=== PATIENT | female | born 1990 | race Caucasian/White ===

== ENCOUNTER 2017-11-21 18:05 | Inpatient (IN) ==
[2017-11-21] MEDS ORDERED: Sod Chloride 0.9% Inj 1,000 ML IV.CONT PRN (19:42)
[2017-11-21] MEDS ORDERED: fentaNYL Citrate Inj 100 MCG/2 ML Ampul IV.PUSH PRN ×2 (19:42)
[2017-11-21] MEDS ORDERED: Sodium Chlor 0.9% Inj 500 ML IV.SIG PRN (19:42)
[2017-11-21] MEDS ORDERED: Oxytocin 30 Units/500ml Premix 30 UNITS/500 ML BAG IV.SIG ONE (19:42)
[2017-11-21] MEDS ORDERED: Naloxone Inj 0.4 MG/ML Vial IV.PUSH PRN (19:42)
[2017-11-21] MEDS ORDERED: Citric Acid/Sodium Citrate Liq 30 ML UDC PO SCH (19:45)
--- NOTE | 2017-11-21 19:54 | P.HPOB ---
History of Present Illness Service: Obstetrics Primary Care Physician: NOT REQUIRED Chief Complaint: labor induction per Dr. Ospina, post dates History of Present Illness: 27 yo G1 with EDC 11/19/17 by ultrasound seen in the office today by Dr. Ospina with discussion of labor induction due to postdates. Pt aware of risks of induction including risk of failure, distress, need for , and strongly desires post dates induction today. No leakage of fluid or vaginal bleeding, endorses good movement. No regular contractions, pain 2/10 pelvic pressure. Weeks Gestation:: 40 Para: 0 : 1 - Inpatient Certification I certify that the inpatient services were ordered in accordance with Medicare regulations governing the order. This includes certification that hospital inpatient services are reasonable and necessary and in the case of services not specified as inpatient-only under 42 CFR 419.22(n), that they are appropriately provided as inpatient services in accordance to with the 2-midnight benchmark under 43 CFR 412.3(e) Estimated Total Length of Stay (Days): 5 Plans for Post Hospital Care: Home Review of Systems All other systems reviewed negative except as stated in HPI PMFSH - History History Provided By: Patient - Medical / Surgical Hx Neg / Unobtainable Medical Problems Denied: Yes - Medical History Medical History: Medical History (Last Updated 11/21/17 @ 19:50 by Marily Andrews MD) History of wisdom tooth extraction - Family History Family History: Family History (Last Updated 11/21/17 @ 19:50 by Marily Andrews MD) Other No significant family history - Social History I have reviewed the patient's Social History: Yes - Tobacco History Second Hand Smoke Exposure: No Tobacco Use In Past 30 Days: No Smoking Status: Former smoker Tobacco Type: Cigarettes - Alcohol History How Often Do You Have a Drink Containing Alcohol: Never - Substance Use History Substance History: No History of Abuse - Travel History History of Recent Travel: Yes ([place] within past 6 months) Recent Travel in the [place] Within the Last 8 Weeks: No Recent Travel Out of the Country Within the Last 8 Weeks: No Medications and Allergies Active Medications: Active Medications Citric Acid/Sodium Citrate (Sodium Citrate/Citric Acid Liq) 30 ml PO RENEWALS REPRESENTATIVE JAYSHREE Stop: 11/25/17 19:44 Dinoprostone (Cervidil Vag Insert) 10 mg VAGINAL ONCE ONE Stop: 11/21/17 19:43 Fentanyl Citrate (Fentanyl Inj) 50 mcg IV.PUSH Q1H PRN PRN Reason: Pain Scale 3 - 5 Fentanyl Citrate (Fentanyl Inj) 100 mcg IV.PUSH Q1H PRN PRN Reason: PAIN SCALE 6 TO 10 Lactated Ringer's (Lr 1000 Ml Inj) 1,000 mls @ 3,000 mls/hr IV.SIG UNSCH PRN PRN Reason: compromise or epidural Sodium Chloride (Ns Inj) 500 mls @ 1,000 mls/hr IV.SIG UNSCH PRN PRN Reason: SEE LABEL COMMENTS Sodium Chloride (Ns Inj) 1,000 mls @ 100 mls/hr IV.CONT .Q10H PRN PRN Reason: SEE LABEL COMMENTS Oxytocin (Pitocin 30 Units/Ns 500 Ml Premix) 30 units in 500 mls @ 999 mls/hr IV.SIG BOLUS ONE Stop: 11/21/17 20:12 Lidocaine HCl (Xylocaine 1% Inj) 0.1 ml I-DERMAL PRN PRN PRN Reason: For IV start Stop: 11/24/17 19:41 Lidocaine HCl (Xylocaine 1% Inj) 10 ml INFILTRATN PRN PRN PRN Reason: For episiotomy repair Stop: 11/23/17 19:41 Mineral Oil (Muri-Lube Oil) 10 ml TOPICAL PRN PRN PRN Reason: PRN perineal massage Naloxone HCl (Narcan Inj) 0.1 mg IV.PUSH Q2M PRN PRN Reason: for opiate reversal Ondansetron HCl (Zofran Inj) 4 mg IV.PUSH Q6H PRN PRN Reason: NAUSEA OR VOMITING Sodium Chloride (Ns Flush) 2 ml IV.FLUSH BID JAYSHREE Sodium Chloride (Ns Flush) 2 ml IV.FLUSH PRN PRN PRN Reason: FLUSH AFTER USING IV ACCESS Allergies Allergy/AdvReac Type Severity Reaction Status Date / Time No Known Allergies Allergy Unverified 11/21/17 19:16 Home Medications Medication Instructions Recorded Confirmed Type calcium carbonate [Tums] 2 tab PO DAILY PRN 11/21/17 11/21/17 History prenat.vits,chloe,[id number] 1 tab PO DAILY 11/21/17 11/21/17 History [ Vitamin] Exam Vital signs: Vital Signs 11/21/17 18:35 11/21/17 18:55 11/21/17 19:40 Pulse Rate 93 H 89 91 H Blood Pressure 125/69 Intake & Output 11/21/17 11/21/17 11/22/17 06:59 18:59 06:59 Weight 72.121 kg - Constitutional no acute distress - Routine HEENT Exam Head: Present: normocephalic, atraumatic Eye: Present: EOMI ENT: Present: mucous membranes moist - Routine Neck Exam Present: supple, full ROM - Routine Chest/Breast/Axilla Exam Chest wall: Absent: tenderness, mass - Routine Respiratory Exam Absent: accessory muscle use, decreased breath sounds - Routine Cardiovascular Exam Present: RRR. Absent: bradycardia - Routine Abdominal Exam Present: normoactive bowel sounds. Absent: tenderness Comments: gravid c/w dates - Routine Extremities Exam Absent: cyanosis, edema - Routine Skin Exam Present: intact - Routine Neurological Exam Present: alert, oriented X3 Results - Labs Group B Strep: Negative Caprini VTE Risk Assessment Caprini VTE Risk Assessment: No/Low Risk (score <= 1) VTE Pharmacological Exception Reason: Epidural catheter Caprini Risk Assessment Model: Point Value = 1 Point Value = 2 Point Value = 3 Point Value = 5 Age 41-60 Minor surgery BMI > 25 kg/m2 Swollen legs Varicose veins or History of unexplained or recurrent spontaneous Oral contraceptives or hormone replacement Sepsis (< 1 month) Serious lung disease, including pneumonia (< 1 month) Abnormal pulmonary function Acute myocardial infarction Congestive heart failure (< 1 month) History of inflammatory bowel disease Medical patient at bed rest Age 61-74 Arthroscopic surgery Major open surgery (> 45 min) Laparoscopic surgery (> 45 min) Malignancy Confined to bed (> 72 hours) Immobilizing plaster cast Central venous access Age >= 75 History of VTE Family history of VTE Factor V Leiden Prothrombin [id number] Lupus anticoagulant Anticardiolipin antibodies Elevated serum homocysteine Heparin-induced thrombocytopenia Other congenital or acquired thrombophilia Stroke (< 1 month) Elective arthroplasty Hip, pelvis, or leg fracture Acute spinal cord injury (< 1 month) Prophylaxis Regimen: Total Risk Factor Score Risk Level Prophylaxis Regimen 0-1 Low Early ambulation 2 Moderate Order ONE of the following: *Sequential Compression Device (SCD) *Heparin 5000 units SQ BID 3-4 Higher Order ONE of the following medications: *Heparin 5000 units SQ TID *Enoxaparin/Lovenox 40 mg SQ daily (WT < 150 kg, CrCl > 30 mL/min) *Enoxaparin/Lovenox 30 mg SQ daily (WT < 150 kg, CrCl > 10-29 mL/min) *Enoxaparin/Lovenox 30 mg SQ BID (WT < 150 kg, CrCl > 30 mL/min) AND/OR *Sequential Compression Device (SCD) 5 or more Highest Order ONE of the following medications: *Heparin 5000 units SQ TID (Preferred with Epidurals) *Enoxaparin/Lovenox 40 mg SQ daily (WT < 150 kg, CrCl > 30 mL/min) *Enoxaparin/Lovenox 30 mg SQ daily (WT < 150 kg, CrCl > 10-29 mL/min) *Enoxaparin/Lovenox 30 mg SQ BID (WT < 150 kg, CrCl > 30 mL/min) AND *Sequential Compression Device (SCD) Assessment and Plan - Diagnosis (1) Post term Code(s): O48.0 - Post-term Status: Acute - Plan 27 yo G1 with EDC 11/19/[address] Ospina for labor induction due to postdates 1) IOL: unfavorable Rivera score, pt aware of possibility of prolonged induction , possible failed induction, possible distress or need for , consents for induction; plan cervidil overnight and re-evaluate in AM for additional methods as indicated 2) GBS negative 3) status: 09/21 BPP in office today, estimate 7#, vertex, female dispo: not meeting d/c criteria, anticipate discharge 2-3d Discharge Plannin-3d PP
[2017-11-21 21:13] LABS: Baso # (Auto) 0.1 th/mm3 (0.0-0.2); Baso % (Auto) 0.5 % (0.0-2.0); Eos # (Auto) 0.2 th/mm3 (0.0-0.4); Eos % (Auto) 1.4 % (0.0-4.0); Hematocrit 31.1 % (35.0-46.0); Hemoglobin 9.9 gm/dL (11.6-15.3); Lymph # (Auto) 2.4 th/mm3 (1.0-4.8); Lymph % (Auto) 18.7 % (9.0-44.0); Mean Corpuscular Volume 90.6 fL (80.0-100.0); Mean Platelet Volume 10.8 fL (7.0-11.0); Mono # (Auto) 0.8 th/mm3 (0.0-0.9); Mono % (Auto) 6.1 % (0.0-8.0); Neut # (Auto) 9.2 th/mm3 (1.8-7.7); Neut % (Auto) 73.3 % (16.0-70.0); Platelet Count 192 th/mm3 (150-450); Red Blood Count 3.43 mil/mm3 (4.00-5.30); Red Cell Distribution Width 12.9 % (11.6-17.2); White Blood Count 12.6 th/mm3 (4.0-11.0)
[2017-11-21 21:16] LABS: Bacteria,Urine Rare /hpf; Bilirubin,Urine Negative (Negative); Clarity,Urine Clear (Clear); Color,Urine Yellow (Yellw/Straw); Glucose,Urine (UA) Negative (Negative); Leukocyte Esterase,Urine Negative (Negative); Mucus,Urine Few /lpf (Occasional); Nitrite,Urine Negative (Negative); Specific Gravity,Urine 1.009 (1.002-1.035); Squamous Epithelial Cell,Urine 2 /hpf (0-5)
[2017-11-21 21:20] LABS: Amphetamine Urine With Conf Neg (Neg); Benzodiazepine Urine With Conf Neg (Neg)
[2017-11-22] MEDS ORDERED: Oxytocin 30 Units/500ml Premix 30 UNITS/500 ML BAG IV.SIG PRN (07:49)
--- NOTE | 2017-11-22 07:52 | P.OBLABOR ---
Subjective Interval history: quiet night would like to eat and shower Objective Vital Signs: Vital Signs - 8 hr 11/22/17 00:00 11/22/17 00:10 11/22/17 00:25 Temperature 97.9 F Pulse Rate 88 95 H 87 Respiratory Rate 14 Blood Pressure 117/85 11/22/17 00:40 11/22/17 00:45 11/22/17 01:30 Temperature Pulse Rate 87 88 86 Respiratory Rate Blood Pressure 11/22/17 01:55 11/22/17 02:10 11/22/17 02:25 Temperature Pulse Rate 85 86 84 Respiratory Rate Blood Pressure 11/22/17 02:40 11/22/17 03:35 11/22/17 03:40 Temperature Pulse Rate 91 H 87 79 Respiratory Rate Blood Pressure 11/22/17 03:49 11/22/17 03:50 11/22/17 03:55 Temperature Pulse Rate 82 81 Respiratory Rate 18 Blood Pressure 118/74 11/22/17 04:40 11/22/17 04:55 11/22/17 05:06 Temperature Pulse Rate 91 H 90 79 Respiratory Rate Blood Pressure 95/52 L 11/22/17 05:15 11/22/17 05:25 11/22/17 05:55 Temperature 98.4 F Pulse Rate 79 78 Respiratory Rate 18 Blood Pressure 11/22/17 06:00 11/22/17 06:05 11/22/17 06:55 Temperature Pulse Rate 78 80 97 H Respiratory Rate 18 Blood Pressure 11/22/17 07:20 11/22/17 07:25 11/22/17 07:45 Temperature Pulse Rate 87 84 82 Respiratory Rate Blood Pressure Objective: 2 cm/80/soft/posterior BBOW 0 station EFW 7.5 pelvis clinically adequate strip category one Weeks Gestation: 40 Patient Started Active Labor: No Medical Induction of Labor: Yes Artificial Rupture of Membrane: No Assessment and Plan - Diagnosis (1) Post term Code(s): O48.0 - Post-term Status: Acute - Plan 27 yo G1 with EDC 11/19/[address] Ospina for labor induction due to postdates 1) IOL: unfavorable Rivera score, pt aware of possibility of prolonged induction , possible failed induction, possible distress or need for , consents for induction; plan cervidil overnight and re-evaluate in AM for additional methods as indicated 2) GBS negative 3) status: 09/21 BPP in office today, estimate 7#, vertex, female dispo: not meeting d/c criteria, anticipate discharge 2-3d 11/22/17 7:45 breakfast, shower and then pitocin with epidural as desire encourage ambulation and birthing ball anticipate Discharge Plannin-3d PP
[2017-11-22] MEDS: Prenatal Vit/Ca/Iron/Folic Acid Tablet PO SCH (09:01)
[2017-11-22] MEDS ORDERED: fentaNYL 2MCG-Bupiv 0.125% Epi 150 ML EPIDURAL ONE (12:16)
[2017-11-22] MEDS ORDERED: Lidocaaine 1.5%/Epinephrine 1:200,000 PF Inj 5 ML Amp ONE (12:17)
[2017-11-22] MEDS ORDERED: Lidocaine PF 1% Inj 5 ML Vial ONE ×2 (12:17→12:18)
[2017-11-22] MEDS ORDERED: fentaNYL Citrate Inj 100 MCG/2 ML Ampul EPIDURAL ONE (12:54)
[2017-11-22] MEDS ORDERED: fentaNYL 2MCG-Bupiv 0.125% Epi 150 ML EPIDURAL PRN (12:54)
[2017-11-22] MEDS ORDERED: Measles/Mumps/Rubella Vaccine Inj 0.5 ML Vial SQ ONE (16:00)
[2017-11-22] MEDS ORDERED: Diphtheria/Tetanus/Pertussis Vaccine Inj 0.5 ML Syringe IM ONE (16:00)
[2017-11-22] MEDS ORDERED: Lidocaine 1% Inj 50 ML Vial ONE (19:17)
[2017-11-22] MEDS ORDERED: Acetaminophen 325 MG Tablet PO PRN (20:03)
[2017-11-22] MEDS ORDERED: Bisacodyl 10 MG Supp RECTAL PRN (20:03)
[2017-11-22] MEDS ORDERED: Oxytocin 30 Units/500ml Premix 30 UNITS/500 ML BAG IV.CONT PRN (20:03)
[2017-11-22] MEDS ORDERED: Zolpidem Tartrate 5 MG Tablet PO PRN (20:03)
[2017-11-22] MEDS ORDERED: Naloxone Inj 0.4 MG/ML Vial IV.PUSH PRN (20:03)
--- NOTE | 2017-11-22 20:03 | P.OBDELI ---
Weeks Gestation: 40 Patient Started Active Labor: Yes Medical Induction of Labor: Yes Artificial Rupture of Membrane: Yes Anesthesia: Epidural Episiotomy: none Vaginal Delivery: Normal Presentation: Occiput anterior Nuchal Cord: None Delayed Cord Clamping (45 sec): Yes Placenta: Spontaneous delivery, Intact, 3 vessel cord, Other (cord blood and tissue banking) Laceration: Perineal Repair: Chromic running Estimated blood loss (mL): 200 : Female Female A Infant Delivery Date: 11/22/17 Infant Delivery Time: 20:03 score (1 min): 8 score (5 min): 9
[2017-11-22] MEDS: Benzocaine 20% Top Spray 60 ML Can TOPICAL PRN (22:57)
[2017-11-22] MEDS: Witch Hazel 50%/Glyderin 12.5% 40 Pad Jar RECTAL PRN (22:57)
--- NOTE | 2017-11-23 07:08 | P.PNOB ---
Subjective Post day: 1 Interval history: doing well, pain controlled, VB < menses Objective Vital Signs/I&O: Vital Signs 11/22/17 07:20 11/22/17 07:25 11/22/17 07:45 Temperature Pulse Rate 87 84 82 Respiratory Rate Blood Pressure 11/22/17 08:59 11/22/17 09:20 11/22/17 09:25 Temperature 98.3 F Pulse Rate 100 H 100 H 88 Respiratory Rate 17 Blood Pressure 118/72 11/22/17 09:30 11/22/17 09:35 11/22/17 09:45 Temperature Pulse Rate 93 H 89 79 Respiratory Rate Blood Pressure 11/22/17 09:55 11/22/17 10:10 11/22/17 10:20 Temperature Pulse Rate 86 86 84 Respiratory Rate Blood Pressure 11/22/17 10:25 11/22/17 10:30 11/22/17 10:35 Temperature Pulse Rate 82 88 81 Respiratory Rate Blood Pressure 107/63 11/22/17 10:55 11/22/17 11:00 11/22/17 11:25 Temperature Pulse Rate 96 H 81 79 Respiratory Rate 17 Blood Pressure 115/66 11/22/17 11:30 11/22/17 11:40 11/22/17 11:50 Temperature Pulse Rate 75 73 Respiratory Rate 18 Blood Pressure 11/22/17 11:55 11/22/17 12:00 11/22/17 12:35 Temperature Pulse Rate 82 99 H Respiratory Rate 17 Blood Pressure 125/101 H 11/22/17 12:41 11/22/17 12:45 11/22/17 12:50 Temperature Pulse Rate 92 H 89 90 Respiratory Rate 18 Blood Pressure 117/63 114/62 11/22/17 12:55 11/22/17 13:10 11/22/17 13:15 Temperature 98.0 F Pulse Rate 89 90 85 Respiratory Rate 18 Blood Pressure 108/62 111/62 114/68 11/22/17 13:20 11/22/17 13:25 11/22/17 13:30 Temperature Pulse Rate 86 90 93 H Respiratory Rate Blood Pressure 114/64 117/66 116/64 11/22/17 13:35 11/22/17 13:41 11/22/17 13:50 Temperature Pulse Rate 95 H 81 Respiratory Rate Blood Pressure 146/113 H 117/68 112/72 11/22/17 13:55 11/22/17 13:57 11/22/17 14:00 Temperature Pulse Rate 76 75 Respiratory Rate 17 Blood Pressure 109/64 113/65 11/22/17 14:05 11/22/17 14:09 11/22/17 14:10 Temperature Pulse Rate 73 73 Respiratory Rate 17 Blood Pressure 105/61 106/61 11/22/17 14:20 11/22/17 14:35 11/22/17 14:44 Temperature Pulse Rate 86 89 84 Respiratory Rate 18 Blood Pressure 105/54 L 95/54 L 11/22/17 14:50 11/22/17 14:55 11/22/17 15:05 Temperature Pulse Rate 84 87 95 H Respiratory Rate Blood Pressure 101/55 L 114/74 11/22/17 15:10 11/22/17 15:15 11/22/17 15:20 Temperature Pulse Rate 83 79 89 Respiratory Rate Blood Pressure 115/73 11/22/17 15:25 11/22/17 15:30 11/22/17 15:39 Temperature 98.0 F Pulse Rate 91 H 85 Respiratory Rate 17 18 Blood Pressure 113/70 11/22/17 15:40 11/22/17 15:45 11/22/17 16:10 Temperature Pulse Rate 77 79 75 Respiratory Rate Blood Pressure 111/70 104/58 L 11/22/17 16:25 11/22/17 16:31 11/22/17 16:40 Temperature Pulse Rate 77 75 Respiratory Rate 18 Blood Pressure 100/54 L 11/22/17 16:55 11/22/17 17:05 11/22/17 17:10 Temperature Pulse Rate 76 81 83 Respiratory Rate Blood Pressure 99/50 L 94/67 L 11/22/17 17:13 11/22/17 17:16 11/22/17 17:25 Temperature Pulse Rate 82 92 H Respiratory Rate 16 Blood Pressure 96/57 L 11/22/17 17:35 11/22/17 17:40 11/22/17 17:45 Temperature 97.8 F Pulse Rate 80 89 Respiratory Rate 17 Blood Pressure 114/74 120/77 11/22/17 17:55 11/22/17 18:00 11/22/17 18:04 Temperature Pulse Rate 89 92 H Respiratory Rate 18 Blood Pressure 120/69 11/22/17 18:10 11/22/17 18:30 11/22/17 18:40 Temperature Pulse Rate 90 83 92 H Respiratory Rate Blood Pressure 116/72 11/22/17 18:45 11/22/17 19:00 11/22/17 19:07 Temperature Pulse Rate 98 H 104 H Respiratory Rate 17 18 Blood Pressure 119/77 11/22/17 19:10 11/22/17 19:22 11/22/17 19:25 Temperature Pulse Rate 100 H 104 H 109 H Respiratory Rate 18 Blood Pressure 130/82 11/22/17 19:45 11/22/17 19:58 11/22/17 19:59 Temperature Pulse Rate 102 H 120 H Respiratory Rate 18 18 Blood Pressure 113/72 117/62 11/22/17 20:00 11/22/17 20:15 11/22/17 20:20 Temperature 98.4 F Pulse Rate 104 H 104 H Respiratory Rate 18 Blood Pressure 118/74 118/74 11/22/17 20:30 11/22/17 20:45 11/22/17 21:30 Temperature Pulse Rate 99 H 100 H 97 H Respiratory Rate 18 18 18 Blood Pressure 117/45 L 112/63 104/59 L 11/22/17 21:43 11/22/17 21:44 11/22/17 22:00 Temperature 98.9 F 98.1 F Pulse Rate 86 91 H Respiratory Rate 18 17 Blood Pressure 109/55 L 126/69 Intake & Output 11/22/17 11/23/17 11/23/17 18:59 06:59 18:59 Intake Total 1000 / 1000 Balance 1000 / 1000 Intake: IV 1000 / 1000 LR 1000 mL Inj 1,000 ML @ 125 1000 / 1000 mls/hr IV.SIG .Q8H [facility] Rx#: [id number] Result Diagrams: 11/21/17 18:36 Objective Remarks: GENERAL: Well-nourished, well-developed patient. CARDIOVASCULAR: Regular rate and rhythm without murmurs, gallops, or rubs. RESPIRATORY: Breath sounds equal bilaterally. No accessory muscle use. ABDOMEN/GI: Abdomen soft, non-tender. Fundus: Firm, non-tender at umbilicus. GENITOURINARY: Light to moderate bleeding. EXTREMITIES: No cyanosis or edema, non-tender, without signs of DVT. Medications and IVs: Active Medications Acetaminophen (Tylenol) 650 mg PO Q4H PRN PRN Reason: PAIN SCALE 1 TO 2 Al Hydroxide/Mg Hydroxide (Milk Of Magnesia Liq) 30 ml PO Q12H PRN PRN Reason: Mild Constipation Benzocaine (Americaine 20% Top [place]) 1 spray TOPICAL Q4H PRN PRN Reason: For Perineum Discomfort Last Admin: 11/22/17 22:57 Dose: 1 spray Bisacodyl (Dulcolax Supp) 10 mg RECTAL DAILY PRN PRN Reason: SEVERE CONSITIPATION Calcium Carbonate (Tums Chew) 500 mg PO DAILY PRN PRN Reason: Heartburn Oxytocin (Pitocin 30 Units/Ns 500 Ml Premix) 30 units in 500 mls @ 100 mls/hr IV.CONT UNSCH PRN PRN Reason: Heavy bleeding Ibuprofen (Motrin) 800 mg PO Q8H PRN PRN Reason: For Cramping Last Admin: 11/23/17 03:08 Dose: 800 mg Lactulose (Lactulose Liq) 30 ml PO DAILY PRN PRN Reason: SEVERE CONSITIPATION Miscellaneous Information (Misc Information) 1 each OTHER UNSCH PRN PRN Reason: SEE LABEL COMMENTS Stop: 11/23/17 12:54 Miscellaneous Information (Misc Information) 1 each OTHER UNSCH PRN PRN Reason: SEE LABEL COMMENTS Stop: 11/23/17 12:54 Naloxone HCl (Narcan Inj) 0.1 mg IV.PUSH Q2M PRN PRN Reason: for opiate reversal Ondansetron HCl (Zofran Odt) 4 mg PO Q6H PRN PRN Reason: NAUSEA OR VOMITING Vit/Calcium/Iron/Folic Ac (Stuartnatal Plus 3) 1 tab PO DAILY [facility] Last Admin: 11/22/17 09:01 Dose: Not Given Senna/Docusate Sodium (Sarina-Colace) 1 tab PO BID [facility] Sennosides (Senokot) 17.2 mg PO Q12H PRN PRN Reason: Moderate Constipation Sodium Chloride (Ns Flush) 2 ml IV.FLUSH BID [facility] Last Admin: 11/22/17 09:00 Dose: 2 ml Sodium Chloride (Ns Flush) 2 ml IV.FLUSH PRN PRN PRN Reason: FLUSH AFTER USING IV ACCESS Sodium Chloride (Ns Flush) 2 ml IV.FLUSH PRN PRN PRN Reason: FLUSH AFTER USING IV ACCESS Sodium Chloride (Ns Flush) 2 ml IV.FLUSH BID JAYSHREE Witch [place]/Glycerin (Tucks Pads) 1 applicatio RECTAL QID PRN PRN Reason: HEMORRHOIDS Last Admin: 11/22/17 22:57 Dose: 1 applicatio Zolpidem Tartrate (Ambien) 5 mg PO HS PRN PRN Reason: SLEEP Assessment and Plan - Diagnosis (1) Post term Code(s): O48.0 - Post-term Status: Acute - Plan 27 yo s/p at 40w3d 1. PPD #1: doing well, anticipate d/c home tomorrow - female
[2017-11-23] MEDS: Senna/Docusate Sodium 8.6/50 MG Tablet PO SCH ×3 (08:40→21:02)
[2017-11-23] MEDS: Prenatal Vit/Ca/Iron/Folic Acid Tablet PO SCH (08:42)
--- NOTE | 2017-11-24 07:45 | P.PNOB ---
Subjective Post day: 2 Interval history: Doing well, baby doing well Objective Vital Signs/I&O: Vital Signs 11/23/17 08:00 11/23/17 20:00 Temperature 97.8 F 97.9 F Pulse Rate 74 75 Respiratory Rate 16 18 Blood Pressure 117/60 120/67 Result Diagrams: 11/21/17 18:36 Objective Remarks: GENERAL: Well-nourished, well-developed patient. CARDIOVASCULAR: Regular rate and rhythm without murmurs, gallops, or rubs. RESPIRATORY: Breath sounds equal bilaterally. No accessory muscle use. ABDOMEN/GI: Abdomen soft, non-tender. Fundus: Firm, non-tender at umbilicus. GENITOURINARY: Light to moderate bleeding. EXTREMITIES: No cyanosis or edema, non-tender, without signs of DVT. Medications and IVs: Active Medications Acetaminophen (Tylenol) 650 mg PO Q4H PRN PRN Reason: PAIN SCALE 1 TO 2 Last Admin: 11/23/17 17:34 Dose: 650 mg Al Hydroxide/Mg Hydroxide (Milk Of Magnesia Liq) 30 ml PO Q12H PRN PRN Reason: Mild Constipation Benzocaine (Americaine 20% Top [place]) 1 spray TOPICAL Q4H PRN PRN Reason: For Perineum Discomfort Last Admin: 11/22/17 22:57 Dose: 1 spray Bisacodyl (Dulcolax Supp) 10 mg RECTAL DAILY PRN PRN Reason: SEVERE CONSITIPATION Calcium Carbonate (Tums Chew) 500 mg PO DAILY PRN PRN Reason: Heartburn Oxytocin (Pitocin 30 Units/Ns 500 Ml Premix) 30 units in 500 mls @ 100 mls/hr IV.CONT UNSCH PRN PRN Reason: Heavy bleeding Ibuprofen (Motrin) 800 mg PO Q8H PRN PRN Reason: For Cramping Last Admin: 11/23/17 19:48 Dose: 800 mg Lactulose (Lactulose Liq) 30 ml PO DAILY PRN PRN Reason: SEVERE CONSITIPATION Naloxone HCl (Narcan Inj) 0.1 mg IV.PUSH Q2M PRN PRN Reason: for opiate reversal Ondansetron HCl (Zofran Odt) 4 mg PO Q6H PRN PRN Reason: NAUSEA OR VOMITING Phenazopyridine HCl (Pyridium) 100 mg PO Q8HR JAYSHREE Last Admin: 11/24/17 06:33 Dose: Not Given Vit/Calcium/Iron/Folic Ac (Stuartnatal Plus 3) 1 tab PO DAILY [facility] Last Admin: 11/23/17 08:42 Dose: Not Given Senna/Docusate Sodium (Sarina-Colace) 1 tab PO BID [facility] Last Admin: 11/23/17 21:02 Dose: 1 tab Sennosides (Senokot) 17.2 mg PO Q12H PRN PRN Reason: Moderate Constipation Sodium Chloride (Ns Flush) 2 ml IV.FLUSH BID [facility] Last Admin: 11/23/17 21:02 Dose: Not Given Sodium Chloride (Ns Flush) 2 ml IV.FLUSH PRN PRN PRN Reason: FLUSH AFTER USING IV ACCESS Sodium Chloride (Ns Flush) 2 ml IV.FLUSH PRN PRN PRN Reason: FLUSH AFTER USING IV ACCESS Sodium Chloride (Ns Flush) 2 ml IV.FLUSH BID [facility] Last Admin: 11/23/17 21:02 Dose: Not Given Witch [place]/Glycerin (Tucks Pads) 1 applicatio RECTAL QID PRN PRN Reason: HEMORRHOIDS Last Admin: 11/22/17 22:57 Dose: 1 applicatio Zolpidem Tartrate (Ambien) 5 mg PO HS PRN PRN Reason: SLEEP Assessment and Plan - Diagnosis (1) Post term Code(s): O48.0 - Post-term Status: Acute - Plan 27 yo s/p at 40w3d 1. PPD #2: doing well, anticipate d/c home - female Discharge Plannin-3d PP
[2017-11-24 08:19] VITALS: BP 109/66; PULSE 91; RESP 20; TEMP 97.8; O2SAT 97
[2017-11-24] MEDS: Senna/Docusate Sodium 8.6/50 MG Tablet PO SCH (08:44)
[2017-11-24] MEDS: Prenatal Vit/Ca/Iron/Folic Acid Tablet PO SCH (08:45)
[2017-11-24] MEDS: Witch Hazel 50%/Glyderin 12.5% 40 Pad Jar RECTAL PRN (09:02)
[2017-11-24] MEDS: Benzocaine 20% Top Spray 60 ML Can TOPICAL PRN (09:02)
== END 2017-11-24 10:51 | disposition home or self-care (01) ==
LOC: H2E 18:05 → H1EA 11-22 22:06
PROVIDERS: ADMIT Obstetrics & Gynecology; ATTEND Obstetrics & Gynecology